=== PATIENT | male | born 2000 ===

== ENCOUNTER 2021-03-05 23:25 | Emergency (ER) | payer SELFPAY ==
[~2021-03-05] VITALS: Ht 180.3 cm; Wt 100.6 kg
[2021-03-05 23:26] VITALS: BP 134/77
== END 2021-03-06 00:56 | disposition left against medical advice (07) ==
LOC: M ED 23:25
DX: Z53.21 Procedure and treatment not carried out due to patient leaving prior to being seen by health care provider (principal)

== ENCOUNTER → 2022-05-18 | Outpatient (REF) | payer SELFPAY ==
[2022-05-18 17:38] LABS: SEMEN APPEARANCE OPAQUE (OPAQUE); SEMEN VISCOSITY LIQUID (LIQUID); WBC CONCENTRATION <=1 M/ml (<=1 M/ml)
[2022-05-18 17:39] LABS: SPERM CONCENTRATION 8.9 M/ml (>=15.0)
== END ==
LOC: M LAB REF 17:29
PROVIDERS: ATTEND Internal Medicine
DX: Z98.52 Vasectomy status (principal)